=== PATIENT | male | born 1980 | race Two or more races ===

== ENCOUNTER 2017-02-22 01:13 | Emergency (ER) | payer OTHER ==
--- NOTE | 2017-02-22 01:13 | NUR ---
BIB [facility] AND [employer] IN CUSTODY. REFUSES TO BE TRIAGED OR TO BE SEEN BY ER DOCTOR. DENIES PAIN OR ANY OTHER SX'S AT THIS TIME. DR. MARTINEZ TALKING TO PT AT THIS TIME. AND PT STILL REFUSES TO BE TOUCHED OR SEEN. STATES "AM OK AND WANNA GO". RESP EVEN AND UNLABORED. NON DIAPHROETIC.
--- NOTE | 2017-02-22 01:20 | NUR ---
STILL REFUSES TO BE SEEN OR EVEN TRIAGED DESPITE MULTIPLE NURSES AND EMD TALKING TO HIM.
== END 2017-02-22 01:32 | disposition left against medical advice (07) ==
LOC: ER 01:16
DX: Z53.21 Procedure and treatment not carried out due to patient leaving prior to being seen by health care provider (principal)